=== PATIENT | female | born 1985 | race Caucasian/White ===

== ENCOUNTER → 2016-11-04 | Outpatient (CLI) | payer MEDICAID ==
[~2016-11-04] VITALS: Ht 160 cm; Wt 69.4 kg
== END | disposition home or self-care (01) ==
LOC: Rad HDHVI 13:09
PROVIDERS: ATTEND Internal Medicine Cardiovascular Disease
DX: R07.9 Chest pain, unspecified (principal)
CPT/HCPCS: 93017; 93306